=== PATIENT | male | born 1965 | race Caucasian/White ===

== ENCOUNTER 2017-12-01 18:52 | Inpatient (IN) | payer MEDICAID ==
--- NOTE | 2017-12-01 19:54 | C.PDOC ---
History Of Present Illness 52 year old male, hx of asthma, presents to the ED requesting substance detoxification from heroin. Patient reports last use of heroin was at 1600 today. He denies any SI/HI or hallucinations. Patient has no physical complaints. Time Seen by Provider: 12/01/17 19:28 Chief Complaint (Nursing): Substance Abuse History Per: Patient History/Exam Limitations: no limitations Onset/Duration Of Symptoms: Days Current Symptoms Are (Timing): Still Present Suicide/Self Injury Attempted (Context): None Modifying Factor(s): Other (heroin) Associated Symptoms: denies: Suicidal Thoughts Past Medical History Reviewed: Historical Data, Nursing Documentation, Vital Signs Vital Signs: Last Vital Signs Temp 98.2 F 12/01/17 19:05 Pulse 88 12/01/17 19:05 Resp 20 12/01/17 19:05 BP Pulse Ox 98 12/01/17 19:05 - Medical History PMH: Arthritis, Asthma Other Surgeries: hx of surgeries Family History: States: No Known Family Hx - Social History Hx Alcohol Use: Yes Hx Substance Use: Yes - Immunization History Hx Tetanus Toxoid Vaccination: No Hx Influenza Vaccination: No Hx Pneumococcal Vaccination: No Review Of Systems Except As Marked, All Systems Reviewed And Found Negative. Psych: Positive for: Other (Detox ). Negative for: Depression, Suicidal ideation Physical Exam - Physical Exam Appears: Non-toxic Skin: Warm, Dry Head: Normacephalic Eye(s): bilateral: Normal Inspection Nose: Normal Oral Mucosa: Moist Neck: Normal ROM Chest: Symmetrical Cardiovascular: Rhythm Regular Respiratory: No Rales, No Rhonchi, Wheezing (minimal scattered) Extremity: Normal ROM Neurological/Psych: Oriented x3, Normal Speech Gait: Steady ED Course And Treatment - Laboratory Results Result Diagrams: 12/01/17 19:54 12/01/17 19:54 O2 Sat by Pulse Oximetry: 98 (RA) Pulse Ox Interpretation: Normal - Radiology CXR: Viewed By Me, Read By Radiologist CXR Interpretation: Yes: No Acute Disease Medical Decision Making Medical Decision Making: Orders: - Labwork - UA 2037 Patient is medically clear for Detox. minimal scattered wheezing, "uses inhaler when needs it". state does not request inhaler at this time. no cardi opulm complaints. 2129 On reassessment, patient has diffused wheezing requiring nebulizer treatmen t and steroids. Patient is not longer clear for Detox. Dr. Swartz was paged. [id number] Swartz. Agrees with course of treatment. Disposition - Disposition Disposition: HOSPITALIZED Disposition Time: 22:54 Condition: STABLE - Clinical Impression Clinical Impression: Asthma, Drug abuse - Scribe Statement The provider has reviewed the documentation as recorded by the Scribe Little Khan All medical record entries made by the Scribe were at my direction and personally dictated by me. I have reviewed the chart and agree that the record accurately reflects my personal performance of the history, physical exam, medical decision making, and the department course for this patient. I have also personally directed, reviewed, and agree with the discharge instructions and disposition. Decision To Admit - Pt Status Changed To: Hospital Disposition Of: Inpatient - Admit Certification Admit to Inpatient:: After my assessment, the patient will require hospitalization for at least two midnights. This is because of the severity of symptoms shown, intensity of services needed, and/or the medical risk in this patient being treated as an outpatient. - InPatient: Physician Admission Certification: I certify that this patient requires 2 or m ore midnights of care for the following reason:: needs nebs steriods detox - . Bed Request Type: Regular Admitting Physician: Margarito Swartz Patient Diagnosis: Asthma, Drug abuse
[2017-12-01 20:01] LABS: BASO # 0.1 K/uL (0.0-0.2); BASO % 1.4 % (0.0-2.0); EOS # 0.2 K/uL (0.0-0.7); EOS % 3.5 % (0.0-4.0); HEMOGLOBIN 14.1 g/dL (12.0-18.0); LYMPH # 3.3 K/uL (1.0-4.3); LYMPH % 53.1 % (20.0-40.0); MEAN CELL VOLUME 94.1 fL (80.0-94.0); MEAN CORPUSCULAR HEMOGLOBIN 32.2 pg (27.0-31.0); MEAN CORPUSCULAR HGB CONC 34.2 g/dL (33.0-37.0); MEAN PLATELET VOLUME 7.5 fL (7.2-11.7); MONO # 0.4 K/uL (0.0-0.8); MONO % 5.8 % (0.0-10.0); NEUT # 2.2 K/uL (1.8-7.0); NEUT % 36.2 % (50.0-75.0); NRBC % 0.1 % (0.0-2.0); RBC 4.38 Mil/uL (4.40-5.90); RED CELL DISTRIBUTION WIDTH 13.8 % (11.5-14.5); WHITE BLOOD COUNT 6.2 K/uL (4.8-10.8)
[2017-12-01 20:34] LABS: SQUAMOUS EPITHIAL < 1 /hpf (0-5); URINE BACTERIA RARE (<OCC); URINE BILIRUBIN NEGATIVE (NEGATIVE); URINE BLOOD NEGATIVE (NEGATIVE); URINE CLARITY Clear (Clear); URINE GLUCOSE (UA) NORMAL (Normal); URINE LEUKOCYTE ESTERASE NEG Leu/uL (Negative); URINE PROTEIN NEGATIVE (NEGATIVE)
[2017-12-01 20:37] LABS: ALB/GLOB RATIO 1.6 (1.0-2.1); ALBUMIN 4.2 g/dL (3.5-5.0); ALT/SGPT 27 U/L (21-72); AST/SGOT 26 U/L (17-59); BLOOD UREA NITROGEN 11 mg/dL (9-20); CALCIUM 9.6 mg/dl (8.6-10.4); GFR NON-AFRICAN AMERICAN > 60
[2017-12-01 20:37] LABS: URINE COLOR YELLOW (YELLOW)
[2017-12-01 20:40] LABS: BARBITURATES, UR NEGATIVE (NEGATIVE)
[2017-12-01 20:45] LABS: BENZODIAZEPINES, UR POSITIVE (NEGATIVE); OPIATES, UR POSITIVE (NEGATIVE); PHENCYCLIDINE, UR POSITIVE (NEGATIVE)
[2017-12-01] MEDS ORDERED: Albuterol-Ipratrop 3 mg / 0.5 (3 ml) UD INH STA ×3 (21:23)
[2017-12-01] MEDS ORDERED: MethylPREDNISolone 40 mg Vial IVP STA (21:23)
[2017-12-02 00:31] VITALS: RESP 20
[2017-12-02] MEDS: MethylPREDNISolone 40 mg Vial IVP SCH ×4 (00:58→20:57)
[2017-12-02] MEDS: Albuterol-Ipratrop 3 mg / 0.5 (3 ml) UD INH SCH ×6 (07:51→23:57)
--- NOTE | 2017-12-02 08:22 | RAD ---
Date of service: 12/01/2017 HISTORY: asthma COMPARISON: 11/22/2014 TECHNIQUE: Chest PA and lateral FINDINGS: LUNGS: No consolidation. The hyperlucency over each apex and left lung base below the left breast soft tissues in this male patient appear similar. Technical factors versus bullous/bleb changes in these locations are compatible with this. PLEURA: No significant pleural effusion identified. No pneumothorax apparent. CARDIOVASCULAR: Normal. OSSEOUS STRUCTURES: Thoracic spondylosis. Some probable minimal deformity of a left inferolateral rib-previously referenced in 2015-not an acute finding. VISUALIZED UPPER ABDOMEN: Normal. OTHER FINDINGS: None. IMPRESSION: No active disease. Other findings as above.
--- NOTE | 2017-12-02 10:07 | CP.PCM.PN ---
Subjective - Date & Time of Evaluation Date of Evaluation: 12/02/17 Time of Evaluation: 07:00 - Subjective Subjective: PGY2- Progress Note for Dr. Swartz Patient is a 52 year old male with PMHx of asthma who presents for asthma exacerbation and detox from heroin. Patient has shortness of breath daily and wakes up nightly with cough and shortness of breath. Patient uses rescue inhaler at least once a day. Patient has been using heroin since age 35 off and on. Patient has been incarcerated many times during which he was not using. For the past 5 years however patient has been using 15 bags of heroin daily with no periods of abstinence. Patient only snorts heroin and denies having ever injected it. Patient says he used to use other drugs like PCP, but for the past 5 years has only used heroin. Patient used 11 bags of heroin before coming into the ER 12/01. Today patient is starting to feel withdrawal symptoms including abdominal pain, anxiety, and shakiness. Patient denies any nausea, vomiting, or diarrhea, but says he feels like he will start having symptoms soon. PMD: Dr. Swartz Allergies: NKDA PMHx: Asthma (diagnosed about 7 months ago) Surghx: Left eye cyst removal years ago, right finger surgery 10 years ago Meds: Albuterol inhaler Social: smokes 4 cigs/ day, Heroin since 35 off and on, past 5 years consistently 15 bags per day, no alcohol, prior PCP use lives with girlfriend, unemployed Objective - Vital Signs/Intake and Output Vital Signs (last 24 hours): Temp Pulse Resp BP Pulse Ox 97.7 F 82 20 102/62 96 12/02/17 07:54 12/02/17 07:54 12/02/17 07:54 12/02/17 07:54 12/02/17 07:54 Intake and Output: 12/02/17 12/02/17 06:59 18:59 Intake Total 360 Balance 360 - Medications Medications: Current Medications Albuterol/Ipratropium (Duoneb 3 Mg/0.5 Mg (3 Ml) Ud) 3 ml INH RQ4 MARTINE Last Admin: 12/02/17 07:51 Dose: 3 ml Enoxaparin Sodium (Lovenox) 40 mg SC DAILY MARTINE Lorazepam (Ativan) 1 mg PO Q6H PRN PRN Reason: Agitation Last Admin: 12/02/17 06:07 Dose: 1 mg Methylprednisolone (Solu-Medrol) 40 mg IVP Q6H MARTINE Last Admin: 12/02/17 06:07 Dose: 40 mg Pneumococcal Polyvalent Vaccine (Pneumovax 23 Vaccine) 0.5 ml IM .ONCE ONE Stop: 12/04/17 10:01 - Labs Labs: 12/01/17 19:54 12/01/17 19:54 - Constitutional Appears: Non-toxic, No Acute Distress - Head Exam Head Exam: ATRAUMATIC, NORMAL INSPECTION, NORMOCEPHALIC - Eye Exam Eye Exam: EOMI, Normal appearance - ENT Exam ENT Exam: Mucous Membranes Moist - Respiratory Exam Respiratory Exam: Clear to Ausculation Bilateral, Wheezes (b/l diffuse wheezing ), NORMAL BREATHING PATTERN - Cardiovascular Exam Cardiovascular Exam: REGULAR RHYTHM, RRR, +S1, +S2. absent: Murmur - GI/Abdominal Exam GI & Abdominal Exam: Soft, Hyperactive Bowel Sounds. absent: Tenderness - Extremities Exam Extremities Exam: Normal Inspection. absent: Pedal Edema, Tenderness - Back Exam Back Exam: NORMAL INSPECTION - Neurological Exam Neurological Exam: Alert, Awake, Oriented x3 - Psychiatric Exam Psychiatric exam: Normal Affect, Normal Mood - Skin Skin Exam: Intact, Normal Color, Warm Assessment and Plan - Assessment and Plan (Free Text) Assessment: Moderate Persistent Asthma continue Duonebs q4h martine Solu-medrol 40mg ivp q6h decreased to q8h Heroin Withdrawal Psych, Dr. Alexis consulted, help appreciated Ativan 1mg po q6h prn Methadone taper Prophylaxis Lovenox 40mg sc daily SCDs discussed with Dr. Swartz management as per Dr. Swartz
[2017-12-02] MEDS: Enoxaparin 40 mg Syringe SC SCH (10:17)
--- NOTE | 2017-12-02 11:29 | PCM.PSYCH ---
Addendum entered and electronically signed by Sujatha Nevarez MD 12/03/17 00:06: Pt seen and evacuated with the resident, agreed with the findings. Original Note: Initial Psychiatric Evaluation - Initial Psychiatric Evaluation Type of Admission: Voluntary Legal Status: Capacity Chief Complaint (in patient's own words): "I need detox" History of Present Illness and Precipitating Events: Patient is a 52 year old male with PMHx of asthma who presents for asthma exacerbation and detox from heroin. Consulted to aid in heroin detox. Patient chart reviewed, spoke with patient, and medical team. Admits to snorting 15 bags of heroin a day for at least the last 4 years. Was hospitalized for detox for 6 months at [facility] 7 years ago and only maintained sobriety for less than 1 year. Did not follow up anywhere for outpatient treatment, including NA meetings. Admits to 5 cig/day, past anabella dust use although testing positive for PCP on UDS. Denies current EtOH. He came to the hospital for detox as he is sick of how much it costs, and the physical toll it takes on his body. Almost immediately upon waking, he experiences headache and sweating, and about 2 hours later without using, he starts having diarrhea. Denies any SI/HI, hallucinations of any kind while sober. PMH includes asthma, OA, glaucoma. Denies any regular medications, carries Ventolin inhaler. Last heroin use immediately prior to admission. Current Medications: Active Medications Generic Name Dose Route Start Last Admin Trade Name Freq PRN Reason Stop Dose Admin Albuterol/Ipratropium 3 ml 12/02/17 04:00 12/02/17 07:51 Duoneb 3 Mg/0.5 Mg (3 Ml) Ud INH 3 ml RQ4 MICHAEL Administration Enoxaparin Sodium 40 mg 12/02/17 10:00 12/02/17 10:17 Lovenox SC Not Given DAILY MICHAEL Lorazepam 1 mg 12/01/17 22:06 12/02/17 06:07 Ativan PO 1 mg Q6H PRN Administration Agitation Methylprednisolone 40 mg 12/02/17 01:00 12/02/17 06:07 Solu-Medrol IVP 40 mg Q6H MICHAEL Administration Pneumococcal Polyvalent Vaccine 0.5 ml 12/04/17 10:00 Pneumovax 23 Vaccine IM 12/04/17 10:01 .ONCE ONE Past Psychiatric History - Past Psychiatric History Previous Treatment History: Inpatient Pertinent Medical Hx (Current Medical&Sleep Prob, Allergies): Allergies Allergy/AdvReac Type Severity Reaction Status Date / Time No Known Allergies Allergy Unverified 12/01/17 19:12 Albuterol Sulfate [Ventolin Hfa] 0.09 mg IH Q4 PRN #1 inh 11/22/14 Review of Systems - Neurological Neurological: Behavioral Changes, Confusion, Dizziness, Numbness, Headaches, Memory Loss - Psychiatric Psychiatric: Abnormal Sleep Pattern, Anxiety, Confusion. absent: Anhedonia, Auditory Hallucinations, Depression, Hallucinations, Homicidal Ideation, Suicidal Ideation, Visual Hallucinations, Tactile Hallucinations Mental Status Examination - Personal Presentation Personal Presentation: Looks older than stated age - Affect Affect: Constricted - Motor Activity Motor Activity: Calm - Reliability in Providing Information Reliability in Providing Information: Good - Speech Speech: Organized - Mood Mood: Anxious - Formal Thought Process Formal Thought Process: No Impairment - Cognitive Functions Orientation: Person, Place, Situation, Time Sensorium: Drowsy Attention/Concentration: Attentive Abstract Thinking: [place] Estimate of Intelligence: Average Judgement: Intact, as evidence by: Insight regarding need for hospitalization Memory: Recent intact, as evidence by: Ability to recall events of the day - Risk Risk: Withdrawal - Strength & Assets Inventory Strength & Assets Inventory: Cooperative DSM 5 DX - DSM 5 DSM 5 Diagnosis: opioid use severe, withdrawal PCP use Tobacco use - Recommended/Plan of Treatment Treatment Recommendations and Plan of Treatment: methadone taper [facility] and [facility] for abstinence as needed medications attend group and meeting if transferred to psych unit support and psychoeducation refer to inpatient rehab or IOP on d/c nicotine patch if needed 26 min - Smoking Cessation Smoking Cessation Initiated: No
[2017-12-02] MEDS ORDERED: MethylPREDNISolone 40 mg Vial IVP SCH (13:00)
[2017-12-02 14:10] LABS: BASO % 0.2 % (0.0-2.0); HEMOGLOBIN 13.7 g/dL (12.0-18.0); LYMPH # 0.8 K/uL (1.0-4.3); LYMPH % 8.6 % (20.0-40.0); MEAN CELL VOLUME 93.2 fL (80.0-94.0); MEAN CORPUSCULAR HEMOGLOBIN 31.8 pg (27.0-31.0); MEAN CORPUSCULAR HGB CONC 34.2 g/dL (33.0-37.0); MEAN PLATELET VOLUME 7.7 fL (7.2-11.7); MONO # 0.2 K/uL (0.0-0.8); MONO % 1.6 % (0.0-10.0); NEUT # 8.4 K/uL (1.8-7.0); NEUT % 89.6 % (50.0-75.0); PLATELET COUNT 363 K/uL (130-400); RBC 4.29 Mil/uL (4.40-5.90); RED CELL DISTRIBUTION WIDTH 13.4 % (11.5-14.5); WHITE BLOOD COUNT 9.4 K/uL (4.8-10.8)
[2017-12-02 14:32] LABS: ALB/GLOB RATIO 1.6 (1.0-2.1); ALBUMIN 3.8 g/dL (3.5-5.0); ALT/SGPT 15 U/L (21-72); AST/SGOT 19 U/L (17-59); BLOOD UREA NITROGEN 11 mg/dL (9-20); CALCIUM 9.6 mg/dl (8.6-10.4); GFR NON-AFRICAN AMERICAN > 60
[2017-12-02 14:39] LABS: LYMPHOCYTE 5 % (20-40); NEUTROPHIL 95 % (50-75); TOTAL CELLS COUNTED 100
[2017-12-02 14:40] LABS: PLATELET ESTIMATE NORMAL (NORMAL)
[2017-12-03] MEDS ORDERED: Aluminum Hydroxide/Magnesium Hydroxide Susp (30 mL) PO PRN (00:03)
[2017-12-03] MEDS: Albuterol-Ipratrop 3 mg / 0.5 (3 ml) UD INH SCH ×6 (03:26→23:59)
[2017-12-03] MEDS: MethylPREDNISolone 40 mg Vial IVP SCH ×2 (03:42→12:34)
[2017-12-03 07:31] LABS: BASO % 0.1 % (0.0-2.0); HEMOGLOBIN 14.3 g/dL (12.0-18.0); LYMPH # 0.5 K/uL (1.0-4.3); LYMPH % 3.6 % (20.0-40.0); MEAN CELL VOLUME 93.7 fL (80.0-94.0); MEAN CORPUSCULAR HEMOGLOBIN 31.8 pg (27.0-31.0); MEAN CORPUSCULAR HGB CONC 33.9 g/dL (33.0-37.0); MONO # 0.2 K/uL (0.0-0.8); MONO % 1.2 % (0.0-10.0); NEUT # 13.3 K/uL (1.8-7.0); NEUT % 95.1 % (50.0-75.0); PLATELET COUNT 406 K/uL (130-400); RBC 4.51 Mil/uL (4.40-5.90); RED CELL DISTRIBUTION WIDTH 13.7 % (11.5-14.5)
--- NOTE | 2017-12-03 07:52 | CP.PCM.PN ---
Subjective - Date & Time of Evaluation Date of Evaluation: 12/03/17 Time of Evaluation: 10:00 - Subjective Subjective: PGY 3 Med Note- Dr. Swartz's service Patient seen and examined in no apparent acute distress. Patient states that his breathing is improved. He states that he was wheezing quite a bit when he initially presented to the hospital. Patient states that he is currently detoxing from heroin use. Patient states that he only snorts; he denies ever injecting. Patient denies chest pain, headaches, nausea, vomiting at this time. Objective - Vital Signs/Intake and Output Vital Signs (last 24 hours): Temp Pulse Resp BP Pulse Ox 98.2 F 89 20 108/60 96 12/03/17 00:40 12/03/17 00:40 12/03/17 00:40 12/03/17 00:40 12/03/17 00:40 Intake and Output: 12/03/17 12/03/17 06:59 18:59 Intake Total 480 Balance 480 - Medications Medications: Current Medications Al Hydrox/Mg Hydrox/Simethicone (Maalox 30 Ml) 30 ml PO TID PRN PRN Reason: Indigestion / Heartburn Albuterol/Ipratropium (Duoneb 3 Mg/0.5 Mg (3 Ml) Ud) 3 ml INH RQ4 MARTINE Last Admin: 12/03/17 03:26 Dose: Not Given Enoxaparin Sodium (Lovenox) 40 mg SC DAILY MARTINE Last Admin: 12/02/17 10:17 Dose: Not Given Loperamide HCl (Imodium) 2 mg PO Q8 PRN PRN Reason: Diarrhea Lorazepam (Ativan) 1 mg PO Q6H PRN PRN Reason: Agitation Last Admin: 12/03/17 03:44 Dose: 1 mg Methadone HCl (Methadone) 0 mg PO DAILY MARTINE; Taper Stop: 12/06/17 09:59 Methylprednisolone (Solu-Medrol) 40 mg IVP Q8H MARTINE Last Admin: 12/03/17 03:42 Dose: 40 mg Ondansetron HCl (Zofran Tab) 4 mg PO Q8 PRN PRN Reason: Nausea/Vomiting Pneumococcal Polyvalent Vaccine (Pneumovax 23 Vaccine) 0.5 ml IM .ONCE ONE Stop: 12/04/17 10:01 Pseudoephedrine HCl (Sudafed Tab) 60 mg PO QID PRN PRN Reason: Nasal/Sinus Congestion - Labs Labs: 12/03/17 06:51 12/02/17 14:00 - Constitutional Appears: No Acute Distress - Head Exam Head Exam: ATRAUMATIC, NORMAL INSPECTION - Eye Exam Eye Exam: EOMI, Normal appearance - ENT Exam ENT Exam: Mucous Membranes Moist - Neck Exam Neck Exam: Full ROM - Respiratory Exam Respiratory Exam: Wheezes (scattered and intermittent). absent: Rales, Rhonchi - Cardiovascular Exam Cardiovascular Exam: +S1, +S2 - GI/Abdominal Exam GI & Abdominal Exam: Soft, Normal Bowel Sounds. absent: Tenderness - Extremities Exam Extremities Exam: Full ROM - Neurological Exam Neurological Exam: Alert, Awake, Oriented x3 - Psychiatric Exam Psychiatric exam: Normal Affect, Normal Mood - Skin Skin Exam: Dry, Normal Color, Warm Assessment and Plan - Assessment and Plan (Free Text) Assessment: Moderate Persistent Asthma Continue Duonebs q4h martine Switch Solu-medrol 40mg IV to Prednisone 40 mg PO Q8H Counseled on asthma management Monitor Heroin Withdrawal Psych, Dr. Alexis consulted, help appreciated Ativan 1mg po q6h prn Methadone taper scheduled to stop 12/06/2017 Patient is refusing in patient detox at this time. Prophylaxis Lovenox 40mg sc daily SCDs GI prophylaxis not currently indicated Discussed with attending. All planning and management as per Dr. Swartz
[2017-12-03 07:53] LABS: ALB/GLOB RATIO 1.6 (1.0-2.1); ALBUMIN 4.1 g/dL (3.5-5.0); ALT/SGPT 25 U/L (21-72); AST/SGOT 25 U/L (17-59); BLOOD UREA NITROGEN 14 mg/dL (9-20); CALCIUM 9.9 mg/dl (8.6-10.4); GFR NON-AFRICAN AMERICAN > 60
[2017-12-03 08:19] VITALS: O2SAT 95
[2017-12-03 08:29] LABS: LYMPHOCYTE 5 % (20-40); MONOCYTE 1 % (0-10); NEUTROPHIL 94 % (50-75); PLATELET ESTIMATE NORMAL (NORMAL); TOTAL CELLS COUNTED 100
[2017-12-03] MEDS: Enoxaparin 40 mg Syringe SC SCH (10:07)
[2017-12-04 01:15] VITALS: BP 108/71; PULSE 77; TEMP 98.7
[2017-12-04] MEDS: Albuterol-Ipratrop 3 mg / 0.5 (3 ml) UD INH SCH (03:27)
[2017-12-04] MEDS ORDERED: Pneumococcal 23-Valent Vaccine IM ONE (10:00)
== END 2017-12-04 04:08 | disposition left against medical advice (07) | DRG 96 ==
LOC: C.ER 18:52 → C.7D 21:00 → UNDOADMIN 21:00 → C.9E 22:08 → C.3T 22:46
PROVIDERS: ADMIT Internal Medicine Pulmonary Disease; ATTEND Internal Medicine Pulmonary Disease
PROC: HZ81ZZZ Medication Management for Substance Abuse Treatment, Methadone Maintenance (ICD-10-PCS; principal; 2017-12-01)
DX: J45.41 Moderate persistent asthma with (acute) exacerbation (principal); F11.23 Opioid dependence with withdrawal; F17.210 Nicotine dependence, cigarettes, uncomplicated; R06.2 Wheezing

== ENCOUNTER 2018-01-16 11:57 | Emergency (ER) | payer MEDICAID ==
[2018-01-16 12:14] VITALS: RESP 20
[2018-01-16] MEDS: Albuterol-Ipratrop 3 mg / 0.5 (3 ml) UD IH SCH ×3 (12:50→13:31)
--- NOTE | 2018-01-16 12:53 | C.PDOC ---
History Of Present Illness 52 years old male with PMHx of Asthma states he is sent to ED by [facility] "because my lungs are not sounding good." Patient states he has been wheezing and using inhalers for 3-4 days which prompted his visit to [facility] yesterday. Patient reports it was raining yesterday and on the way home he slipped and fell and since then has been experiencing right lateral anterior rib pain. Patient states symptoms worsen with movement, cough, and breathing. Denies fever, chills, SOB, chest pain, vomiting, head injury from fall, or any other complaints. Patient also states [facility] yesterday started him on levaquin, prednisone, and phenergan cough syrup. Time Seen by Provider: 01/16/18 12:24 Chief Complaint (Nursing): Rib Injury History Per: Patient History/Exam Limitations: no limitations Onset/Duration Of Symptoms: Days (4), Persistent Current Symptoms Are (Timing): Still Present Recent travel outside of the [place]: No Past Medical History Reviewed: Historical Data, Nursing Documentation, Vital Signs Vital Signs: Last Vital Signs Temp 98.8 F 01/16/18 12:09 Pulse 77 01/16/18 12:09 Resp 20 01/16/18 12:09 BP 101/66 01/16/18 12:09 Pulse Ox 95 01/16/18 12:09 - Medical History PMH: Arthritis, Asthma - [facility] Procedures MEDS MGMT FOR SUBSTANCE ABUSE TREATMENT, METHADONE MAINT (12/01/17) Family History: States: No Known Family Hx - Social History Hx Alcohol Use: Yes (denies) Hx Substance Use: Yes (heroin,anabella dust) - Immunization History Hx Tetanus Toxoid Vaccination: No Hx Influenza Vaccination: No Hx Pneumococcal Vaccination: No Review Of Systems Cardiovascular: Negative for: Chest Pain Respiratory: Positive for: Wheezing. Negative for: Shortness of Breath Gastrointestinal: Negative for: Nausea, Vomiting Musculoskeletal: Positive for: Other (Right lateral anterior rib pain ). Negative for: Back Pain Skin: Negative for: Rash Neurological: Negative for: Weakness, Numbness, Other (Head injury ) Physical Exam - Physical Exam Appears: Non-toxic, No Acute Distress Skin: Warm, Dry, No Rash Head: Atraumatic, Normacephalic Eye(s): bilateral: Normal Inspection, PERRL, EOMI Oral Mucosa: Moist ([place] ) Neck: Normal ROM, Supple Chest: Symmetrical, Other (Small bruise to right lower anterior chest wall with tenderness and pain. No bony step offs or crepitus. ) Cardiovascular: Rhythm Regular, No Murmur Respiratory: No Decreased Breath Sounds, No Rales, Rhonchi (Scattered ), Wheezing (Diffuse expiratory ), Other (Normal respiratory effort. Equal breath sounds. ) Gastrointestinal/Abdominal: Soft, No Tenderness, No Distention Back: Normal Inspection, No CVA Tenderness Extremity: Normal ROM Extremity: Bilateral: Atraumatic, Normal Color And Temperature, Normal ROM Pulses: Left Radial: Normal, Right Radial: Normal Neurological/Psych: Oriented x3, Normal Speech Gait: Steady ED Course And Treatment O2 Sat by Pulse Oximetry: 95 (RA) Pulse Ox Interpretation: Normal - Other Rad Ribs w/ Chest X-Ray X-Ray: Viewed By Me, Read By Radiologist Interpretation: Date of service: The a all 866 the from the weeks of send off of the right. 01/16/2018. PROCEDURE: Radiographs of the Chest and Right Ribs. HISTORY: fall/R rib pain. COMPARISON: Comparison made with prior chest radiograph dated 12/01/2017. TECHNIQUE: Frontal radiograph of the chest and multiple oblique radiographs of the right ribs were obtained. FINDINGS: RIGHT RIBS: There is a minimally displaced fracture of the right 8th or 9th rib.. Questionable nondisplaced fracture right. LUNGS: Lung soriano clear. PLEURA: No pneumothorax or pleural fluid. CARDIOVASCULAR: Heart is mildly enlarged. No pulmonary vascular congestion. No appreciable aortic atherosclerotic calcification present. OTHER FINDINGS: Mild multilevel degenerative spondylosis of the thoracic spine. IMPRESSION: There is a minimally displaced fracture of the right 8th or 9th rib questionable nondisplaced fracture right 7th rib 7th rib. No evidence of pneumothorax. No acute infiltrates.. Note this report was placed in PA review folder for follow up. Medical Decision Making Medical Decision Making: Plan: * Albuterol nebulizer treatment and peak flow. * Ribs and CXR * Re-Asses 14:50: * Patient states he is feeling better after breathing treatment Disposition Counseled Patient/Family Regarding: Studies Performed, Diagnosis, Need For Followup, Smoking Cessation - Disposition Referrals: Margarito Swartz MD [Staff Provider] - Disposition: HOME/ ROUTINE Disposition Time: 16:11 Condition: STABLE Additional Instructions: Additional Aftercare Instructions The emergency medical care you received today was directed at your acute symptoms. If you develop any new or worsening symptoms please contact your PCP/Clinic or return to the Emergency Department. Despite a negative work up you still may have a significant medical or surgical problem. Contact your doctor or the referral doctor today for a follow up appointment. Bring any paperwork you were given at discharge with you along with any medications. Our treatment cannot replace on going medical care by your primary care provider (PCP). If you were given prescriptions fill and take as directed. It may take several days for your symptoms to resolve. Follow-Up Care: Please follow up with your doctor or call one of the physicians/clinics you have been referred to listed on the Patient Visit Information form that is included in your discharge packet. We may need to contact you with final test results please confirm your phone number is correct. Your questions, comments, suggestions and/or concerns are valuable to us. Please feel free to contact our patient hotline at . Thanks for allowing the [facility] team to be part of your care today. Please follow up with your Primary Care Provider in the next 2-3 days. Prescriptions: Ketorolac Tromethamine [Toradol] 10 mg PO Q6 PRN #15 tab PRN Reason: Pain, Moderate (4-7) Instructions: Upper Respiratory Infection (ED), Rib Fracture (DC), How to Use an Incentive Spirometer Forms: [employer] (Iranian), General Discharge Instructions - POA Present On Arrival: None - Clinical Impression Clinical Impression: Upper respiratory infection, Rib fractures - Scribe Statement The provider has reviewed the documentation as recorded by the Mily Torre All medical record entries made by the Arlynibjose were at my direction and pe rsonally dictated by me. I have reviewed the chart and agree that the record accurately reflects my personal performance of the history, physical exam, medical decision making, and the department course for this patient. I have also personally directed, reviewed, and agree with the discharge instructions and disposition.
[2018-01-16] MEDS ORDERED: Albuterol-Ipratrop 3 mg / 0.5 (3 ml) UD ONE (13:12)
[2018-01-16 15:19] VITALS: BP 106/61; PULSE 83; TEMP 98.6
--- NOTE | 2018-01-16 15:41 | RAD ---
Date of service: The a all 866 the from the honey weeks of send off of the right 01/16/2018 PROCEDURE: Radiographs of the Chest and Right Ribs. HISTORY: fall/R rib pain COMPARISON: Comparison made with prior chest radiograph dated 12/01/2017 TECHNIQUE: Frontal radiograph of the chest and multiple oblique radiographs of the right ribs were obtained. FINDINGS: RIGHT RIBS: There is a minimally displaced fracture of the right 8th or 9th rib.. Questionable nondisplaced fracture right LUNGS: Lung soriano clear. PLEURA: No pneumothorax or pleural fluid. CARDIOVASCULAR: Heart is mildly enlarged. No pulmonary vascular congestion. No appreciable aortic atherosclerotic calcification present OTHER FINDINGS: Mild multilevel degenerative spondylosis of the thoracic spine IMPRESSION: There is a minimally displaced fracture of the right 8th or 9th rib questionable nondisplaced fracture right 7th rib 7th rib. No evidence of pneumothorax. No acute infiltrates.. Note this report was placed in PA review folder for follow up.
[2018-01-16 15:42] VITALS: O2SAT 95
== END 2018-01-16 16:30 | disposition home or self-care (01) ==
LOC: C.ER 11:57
DX: J06.9 Acute upper respiratory infection, unspecified (principal); S22.31XA Fracture of one rib, right side, initial encounter for closed fracture; W01.0XXA Fall on same level from slipping, tripping and stumbling without subsequent striking against object, initial encounter
CPT/HCPCS: 71101; 94640; 96372; 99285; J1885

== ENCOUNTER 2018-03-09 10:11 | Inpatient (IN) | payer MEDICAID ==
--- NOTE | 2018-03-09 11:50 | C.PDOC ---
History Of Present Illness 52 year old male, whose past medical history includes asthma, glaucoma, and bilateral shoulder arthritis, presents to the ED requesting heroin and Xanax detox. Patient states his last use was this morning; he snorted one bag of heroi n. He is currently complaining of slight nausea, and denies fever, chills, headache, chest pain, shortness of breath, suicidal/homicidal ideation. Time Seen by Provider: 03/09/18 10:35 Chief Complaint (Nursing): Substance Abuse History Per: Patient History/Exam Limitations: no limitations Onset/Duration Of Symptoms: Hrs Current Symptoms Are (Timing): Still Present Modifying Factor(s): Other (heroin, Xanax) Associated Symptoms: denies: Suicidal Thoughts, Suicidal Plan Involuntary Hold By: None Recent travel outside of the [place]: No Additional History Per: Patient Past Medical History Reviewed: Historical Data, Nursing Documentation, Vital Signs Vital Signs: Last Vital Signs Temp 97.9 F 03/09/18 10:21 Pulse 84 03/09/18 10:21 Resp 16 03/09/18 10:21 BP 138/84 03/09/18 10:21 Pulse Ox 98 03/09/18 10:21 - Medical History PMH: Arthritis, Asthma Denies: Diabetes, Hepatitis, HIV, HTN, Chronic Kidney Disease, Seizures, Sexually Transmitted Disease Surgical History: No Surg Hx - [facility] FOR SUBSTANCE ABUSE TREATMENT, METHADONE MAINT (12/01/17) Family History: States: Unknown Family Hx - Social History Hx Alcohol Use: Yes (denies) Hx Substance Use: Yes (heroin,anabella dust) - Immunization History Hx Tetanus Toxoid Vaccination: No Hx Influenza Vaccination: No Hx Pneumococcal Vaccination: No Review Of Systems Constitutional: Negative for: Fever, Chills Cardiovascular: Negative for: Chest Pain Respiratory: Negative for: Shortness of Breath Gastrointestinal: Positive for: Nausea Psych: Positive for: Other (heroin and Xanax detox). Negative for: Suicidal ideation Physical Exam - Physical Exam Appears: Non-toxic, No Acute Distress, Unkempt, Other (thin, frail ) Skin: Normal Color, Warm, Dry Head: Atraumatic, Normacephalic Eye(s): bilateral: Normal Inspection Oral Mucosa: Moist Neck: Supple Chest: Symmetrical, No Deformity Cardiovascular: Rhythm Regular Respiratory: No Accessory Muscle Use Extremity: Normal ROM Neurological/Psych: Normal Speech, Normal Cognition ED Course And Treatment - Laboratory Results Result Diagrams: 03/09/18 12:07 O2 Sat by Pulse Oximetry: 98 (on RA) Pulse Ox Interpretation: Normal Medical Decision Making Medical Decision Making: Progress: Bloodwork and urinalysis ordered and reviewed. Disposition Counseled Patient/Family Regarding: Diagnosis - Disposition Disposition: HOSPITALIZED Disposition Time: 14:02 Condition: STABLE Forms: [facility] (Icelandic) - POA Present On Arrival: None - Clinical Impression Clinical Impression: Drug dependence - Scribe Statement The provider has reviewed the documentation as recorded by the Scribe (Yamileth Del Valle) Provider Attestation: All medical record entries made by the Scribe were at my direction and personally dictated by me. I have reviewed the chart and agree that the record accurately reflects my personal performance of the history, physical exam, medical decision making, and the department course for this patient. I have also personally directed, reviewed, and agree with the discharge instructions and disposition. Decision To Admit - Pt Status Changed To: Hospital Disposition Of: Inpatient - Admit Certification Admit to Inpatient:: After my assessment, the patient will require hospitalization for at least two midnights. This is because of the severity of symptoms shown, intensity of services needed, and/or the medical risk in this patient being treated as an outpatient. - InPatient: Physician Admission Certification: I certify that this patient requires 2 or more midnights of care for the following reason:: nrrds inpatient detox - . Bed Request Type: Detox Admitting Physician: Jarett Townsend Patient Diagnosis: Drug dependence
[2018-03-09 11:52] LABS: BASO % 0.7 % (0.0-2.0); EOS # 0.1 K/uL (0.0-0.7); EOS % 2.1 % (0.0-4.0); HEMOGLOBIN 14.3 g/dL (12.0-18.0); LYMPH # 1.2 K/uL (1.0-4.3); MEAN CORPUSCULAR HEMOGLOBIN 32.4 pg (27.0-31.0); MEAN CORPUSCULAR HGB CONC 33.5 g/dL (33.0-37.0); MONO # 0.3 K/uL (0.0-0.8); MONO % 6.8 % (0.0-10.0); NEUT # 2.6 K/uL (1.8-7.0); NEUT % 62.4 % (50.0-75.0); NRBC % 0.1 % (0.0-2.0); RBC 4.4 Mil/uL (4.40-5.90); RED CELL DISTRIBUTION WIDTH 14.7 % (11.5-14.5)
[2018-03-09 11:57] LABS: URINE BILIRUBIN NEGATIVE (NEGATIVE); URINE BLOOD 1+ (NEGATIVE); URINE CLARITY Clear (Clear); URINE COLOR Yellow (YELLOW); URINE GLUCOSE (UA) NORMAL (Normal); URINE LEUKOCYTE ESTERASE NEG Leu/uL (Negative); URINE PROTEIN NEGATIVE (NEGATIVE); URINE UROBILINOGEN NORMAL mg/dL (0.2-1.0)
[2018-03-09 12:11] LABS: MEAN CELL VOLUME 96.9 fL (80.0-94.0); WHITE BLOOD COUNT 4.1 K/uL (4.8-10.8)
[2018-03-09 13:49] LABS: BENZODIAZEPINES, UR POSITIVE (NEGATIVE); OPIATES, UR POSITIVE (NEGATIVE)
[2018-03-09 13:50] LABS: BARBITURATES, UR NEGATIVE (NEGATIVE); PHENCYCLIDINE, UR NEGATIVE (NEGATIVE)
[2018-03-09 14:12] LABS: BLOOD UREA NITROGEN 12 mg/dL (9-20)
[2018-03-09 14:13] LABS: ALB/GLOB RATIO 1.7 (1.0-2.1); ALBUMIN 4.1 g/dL (3.5-5.0); AST/SGOT 32 U/L (17-59); CALCIUM 9.1 mg/dl (8.6-10.4); GFR NON-AFRICAN AMERICAN > 60
[2018-03-09 14:14] LABS: ALT/SGPT 17 U/L (21-72)
[2018-03-09] MEDS ORDERED: Aluminum Hydroxide/Magnesium Hydroxide Susp (30 mL) PO PRN (16:16)
--- NOTE | 2018-03-09 16:36 | PCM.BM ---
<CarlaBecky - Last Filed: 03/09/18 20:35> Treatment Plan Problems - Problems identified on initial assessmt Denial Date Initiated: 03/09/18 Time Initiated: 16:35 Assessment reference: NA Status: Active Defensive Coping Date Initiated: 03/09/18 Assessment reference: NA Status: Active Low motivation to change Date Initiated: 03/09/18 Time Initiated: 20:36 Assessment reference: NA Status: Active Treatment assets and liabiliti Patient Assests: cooperative, ADL independent, negotiates basic needs, cognitively intact Patient Liabilities: live alone, substance abuse (opiates,benzo,cocaine), medical problems (asthma,glaucoma,arthritis), other (homelessness) - Milieu Protocol Maintain good personal hygiene: daily Encourage regular showers, daily Remind patient to perform daily oral care, daily Assist patient to perform ADL's Conduct patient checks and document Observation sheet: Q15 minutes Maintain personal safety: every shift Educate patient to report safety concerns to staff, every shift Monitor environment for contraband/sharps Medication safety: Monitor for expected outcome, potential side effects: every shift, Assess barriers to learning: every shift, Assess readiness for medication education: every shift <Jarett Townsend - Last Filed: 03/10/18 15:56> Treatment Plan Problems - Problems identified on initial assessmt Denial Date Initiated: 03/09/18 Time Initiated: 16:35 Assessment reference: NA Status: Active Defensive Coping Date Initiated: 03/09/18 Assessment reference: NA Status: Active Low motivation to change Date Initiated: 03/09/18 Time Initiated: 20:36 Assessment reference: NA Status: Active Ineffective Health Maintenance Date Initiated: 03/09/18 Time Initiated: 16:35 Assessment reference: NA Status: Active - Diagnosis (1) Opioid use disorder, severe, dependence Status: Acute Interventions: 03/10/18 15:57 * Assess 7x/week regarding severity of withdrawal * Educate regarding risks, benefits, side effects and alternatives of medications * Use Motivational Interviewing for abstinence * Use CBT for relapse prevention * Medication management for withdrawal symptoms * Encourage medication assisted treatment (2) Cocaine use disorder, severe, dependence Status: Acute Interventions: 03/10/18 15:57 * Assess 7x/week regarding severity of withdrawal * Educate regarding risks, benefits, side effects and alternatives of medications * Use Motivational Interviewing for abstinence * Use CBT for relapse prevention * Medication management for withdrawal symptoms * Encourage medication assisted treatment (3) Sedative, hypnotic or anxiolytic use disorder, mild, abuse Status: Acute Interventions: 03/10/18 15:57 * Assess 7x/week regarding severity of withdrawal * Educate regarding risks, benefits, side effects and alternatives of medications * Use Motivational Interviewing for abstinence * Use CBT for relapse prevention * Medication management for withdrawal symptoms * Encourage medication assisted treatment <Sugey Milner - Last Filed: 03/11/18 14:53> Family Contact Family involvement: Famliy/SO not involved - Goals for Treatment Patient goals for treatment: Complete detox and transition to 12-step meetings. Discharge/Continuing Care - Education Needs Education Needs: Patient Medication, Patient Diagnosis/Disease Process, Patient Coping Skills, Patient Anger Management skills, Patient Placement options, Patient Community resources - Discharge Discharge Criteria: No longer exhibiting s/s of withdrawal, Reduction of target symptoms Discharge to:: Home - Treatment Team Participation Patient/Family/SO Statement: 03/11/18 14:53 "I wanna go to meetings from here. That's all I need." Discussed with Family/SO: No Was Patient/Family/SO present at Treatment Team Meeting: Yes
--- NOTE | 2018-03-10 16:05 | PCM.PSYCH ---
Initial Psychiatric Evaluation - Initial Psychiatric Evaluation Type of Admission: Voluntary Legal Status: Capacity Chief Complaint (in patient's own words): I need help for my heroin, cocaine and Xanax use. 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 Opioid: Started using heroin at 13 years of age, increased gradually up to 1-2 bundles of heroin daily, sniffing. Last use was yesterday one bag. His longest period of abstinence was 15 years until 9 years ago when he relapsed again. Later patient was in methadone maintenance treatment program for 1-1/2 year until 3 months ago when he stopped going to the program and relapsed again. Patient has history of one detox and 2 rehabs in the past in [facility] and [facility]. Cocaine: Patient has history of cocaine use but was guarded about cocaine use. Urine drug screen was also positive for cocaine. Xanax: Started using Xanax 2 weeks ago, was using 1-2 sticks each of 2 mg, 3 times per week. Last used 2 days ago. Patient smokes 5-6 cigarettes daily but is refusing for nicotine patch. Patient has history of right leg surgery during his childhood. Patient has history of frequent requests in the past due to on corroborating, drug charges, shoplifting and [facility]. His last arrest was 10 years ago. Patient was born in [place] and has 12th grade of education. 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 Never and has no children. Lives with his fiance for last 15 years. His height is 5 feet 11 inches and weight is 130 pounds. Current Medications: Active Medications Generic Name Dose Route Start Last Admin Trade Name Freq PRN Reason Stop Dose Admin Al Hydrox/Mg Hydrox/Simethicone 30 ml 03/09/18 16:16 Maalox 30 Ml PO TID PRN Indigestion / Heartburn Chlordiazepoxide 25 mg 03/09/18 18:05 03/10/18 13:23 Librium PO 25 mg Q6 PRN Administration benzo withdrawal Clonidine HCl 0.1 mg 03/09/18 16:16 Catapres PO Q4 PRN COWS Score More or Equal to 5 Dicyclomine HCl 10 mg 03/09/18 16:17 Bentyl PO Q6 PRN Muscle spasm Gabapentin 400 mg 03/10/18 14:00 03/10/18 14:09 Neurontin PO 400 mg TID MICHAEL Administration Ibuprofen 600 mg 03/09/18 16:16 Motrin Tab PO Q6 PRN Pain, moderate (4-7) Loperamide HCl 2 mg 03/09/18 16:16 Imodium PO Q8 PRN Diarrhea Methadone HCl 15 mg 03/10/18 10:00 03/10/18 09:12 Methadone PO 03/13/18 09:59 15 mg Q24H MICHAEL Administration Taper Ondansetron HCl 4 mg 03/09/18 16:16 Zofran Tab PO Q8 PRN Nausea/Vomiting Trazodone HCl 50 mg 03/09/18 22:00 03/09/18 22:25 Desyrel PO 50 mg HS MICHAEL Administration Past Psychiatric History - Past Psychiatric History Previous Treatment History: Inpatient Prior Psychiatric Treatment: One previous detox and 2 previous rehabs. History of Abuse: None reported History of ETOH/Drug Use: See HPI History of Family Illness: None reported Pertinent Medical Hx (Current Medical&Sleep Prob, Allergies): Allergies Allergy/AdvReac Type Severity Reaction Status Date / Time No Known Allergies Allergy Verified 03/09/18 10:22 Albuterol Sulfate [Ventolin Hfa] 0.09 mg IH Q4 PRN #1 inh 11/22/14 Asthma Arthritis Diabetes mellitus Bilateral glaucoma Review of Systems - Psychiatric Psychiatric: As Per HPI, Anxiety Mental Status Examination - Personal Presentation Personal Presentation: Looks stated age - Affect Affect: Other (Appropriate) - Motor Activity Motor Activity: Calm - Reliability in Providing Information Reliability in Providing Information: Fair - Speech Speech: Organized - Mood Mood: Anxious - Formal Thought Process Formal Thought Process: No Impairment - Hallucinations/Delusions Hallucinations: Other (None reported) Delusions: Other - Obsessions/Compulsions Obsessions: None Compulsions: None - Cognitive Functions Orientation: Person, Place, Situation, Time Sensorium: Alert Attention/Concentration: Attentive Abstract Thinking: [place] Estimate of Intelligence: Average Judgement: Intact, as evidence by: Insight regarding need for hospitalization Memory: Recent intact, as evidence by: Ability to recall events of the day, Remote intact, as evidenced by: Ability to recall historical events - Risk Risk: Withdrawal, Diminished functioning - Strength & Assets Inventory Strength & Assets Inventory: Employment history, Cooperative - Limitations Limitations: Other (Lives with fianc) DSM 5 DX - DSM 5 DSM 5 Diagnosis: Opiate withdrawal Opiate use disorder severe Cocaine use disorder severe Angiolytic use disorder mild - Recommended/Plan of Treatment Treatment Recommendations and Plan of Treatment: Patient education. Supportive therapy. CBT for relapse prevention. [place] for abstinence. We'll start methadone for opiate withdrawal symptoms. Librium when necessary for angiolytic use disorder. Other when necessary medications. Patient wants to go to a program for Vivitral injection for follow-up care after discharge from the hospital. Projected ELOS: 4-5 days - Smoking Cessation Smoking Cessation Initiated: No Reason for not providing: Patient refused
[2018-03-11 10:55] VITALS: RESP 18
--- NOTE | 2018-03-11 15:48 | PCM.PYCHPN ---
Psychiatric Progress Note - Psychiatric Progress Note Patient seen today, length of contact: 15 minutes Patient Chief Complaint: I'm feeling little better but I am unable to sleep. Problems Identified/Issues Discussed: Patient seen, chart reviewed, case discussed with the staff. Issues related to illness and treatment were discussed with the patient and staff. Reported compliant with treatment with no adverse effect. Calm and cooperative. Reported feeling little better. Patient still reported feeling sleeping difficulty. We'll increase the dose of trazodone to 100 mg. Patient agreed. Awake, alert and oriented x3. Mood reported as anxious. Affect appropriate. Memory intact. Aftercare discussed with the patient. Denied any delusions, auditory or visual hallucinations, suicidal ideations or homicidal ideations at the time of evaluation. Medical Problems: Asthma Arthritis Diabetes mellitus Bilateral glaucoma Diagnostic Results: Reviewed DSM 5 Symptoms Update: Some improvement with treatment Medication Change: Yes (Dose of trazodone increased to 100 mg.) Medical Record Reviewed: Yes Mental Status Examination - Cognitive Function Orientation: Person, Place, Situation, Time Memory: Intact Attention: WNL Concentration: WNL Association: WN Fund of Knowledge: [facility] Decription of patient's judgement and insights: Fair - Mood Mood: Anxious - Affect Affect: Other (Appropriate) - Speech Speech: Appropriate - Formal Thought Process Formal Thought Process: No Impairment Psychotic Thoughts and Behaviors: None - Suicidal Ideation Suicidal Ideation: No - Homicidal Ideation Homicidal Ideation: No Goal/Treatment Plan - Goal/Treatment Plan Need for Continued Stay: Remain at risks for inpatient hospitalization, Discharge may exacerbated symptoms, Severe functional impairment Progress Toward Problem(s) and Goals/Treatment Plan: Patient education. Supportive therapy. CBT for relapse prevention. [place] for abstinence. Continue treatment as before. Patient wants to go to a program for Vivitral injection for follow-up care after discharge from the hospital. Estimated Date of D/C: 03/13/18 - Smoking Cessation Smoking Cessation Initiated: No
--- NOTE | 2018-03-12 18:43 | PCM.PYCHPN ---
Psychiatric Progress Note - Psychiatric Progress Note Patient seen today, length of contact: 15 minutes Patient Chief Complaint: I am feeling better. Last night I slept good. Problems Identified/Issues Discussed: Patient seen, chart reviewed, case discussed with the staff. Issues related to illness and treatment were discussed with the patient and staff. Reported compliant with treatment with no adverse effect. Calm and cooperative. Reported feeling better. Patient reported slept last night after increasing dose of trazodone and now he is feeling much better. Awake, alert and oriented x3. Mood reported as anxious. Affect appropriate. Memory intact. Aftercare discussed with the patient. Denied any delusions, auditory or visual hallucinations, suicidal ideations or homicidal ideations at the time of evaluation. Medical Problems: Asthma Arthritis Diabetes mellitus Bilateral glaucoma Diagnostic Results: Reviewed DSM 5 Symptoms Update: Improving with treatment. Medication Change: No Medical Record Reviewed: Yes Mental Status Examination - Cognitive Function Orientation: Person, Place, Situation, Time Memory: Intact Attention: WNL Concentration: WNL Association: WNL Fund of Knowledge: [facility] Decription of patient's judgement and insights: Fair - Mood Mood: Anxious (Much less than before) - Affect Affect: Other (Appropriate) - Speech Speech: Appropriate - Formal Thought Process Formal Thought Process: No Impairment Psychotic Thoughts and Behaviors: None - Suicidal Ideation Suicidal Ideation: No - Homicidal Ideation Homicidal Ideation: No Goal/Treatment Plan - Goal/Treatment Plan Need for Continued Stay: Remain at risks for inpatient hospitalization, Discharge may exacerbated symptoms, Severe functional impairment Progress Toward Problem(s) and Goals/Treatment Plan: Patient education. Supportive therapy. CBT for relapse prevention. [place] for abstinence. Continue treatment as before. Patient wants to go to a program for Vivitral injection for follow-up care after discharge from the hospital. Estimated Date of D/C: 03/13/18 - Smoking Cessation Smoking Cessation Initiated: No
[2018-03-13 06:18] VITALS: PULSE 80; TEMP 97.7
[2018-03-13 09:40] VITALS: BP 120/78; O2SAT 97
--- NOTE | 2018-03-13 10:22 | PCM.PYCHDC ---
Mental Status Examination - Mental Status Examination Orientation: Person, Place, Situation, Time Memory: Intact Mood: Neutral Affect: Other (Appropriate) Speech: Appropriate Attention: WNL Concentration: WNL Association: WNL Fund of Knowledge: WNL Formal Thought Process: No Impairment Description of patient's judgement and insight: Fair Psychotic Thoughts and Behaviors: None Suicidal Ideation: No Current Homicidal Ideation?: No Discharge Summary - Discharge Note Reason for Hospitalization: Opioid use disorder severe. Cocaine use disorder severe. Anxiolytic use disorder mild Laboratory Data: Reviewed Consultations:: List each consultation separately and include: 1. Reason for request. 2. Findings. 3. Follow-up Summary of Hospital Course include:: 1. Description of specific treatment plan utilized for patients during their course of treatmen. 2. Summarize the time- course for resolution of acute symptoms and/or regressed behaviors. 3. Describe issues identified and worked on during hospitalization. 4. Describe medication utilized. 5. Describe medical problems identified and treated. 6. 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 Opioid: Started using heroin at 13 years of age, increased gradually up to 1-2 bundles of heroin daily, sniffing. Last use was yesterday one bag. His longest period of abstinence was 15 years until 9 years ago when he relapsed again. Later patient was in methadone maintenance treatment program for 1-1/2 year until 3 months ago when he stopped going to the program and relapsed again. Patient has history of one detox and 2 rehabs in the past in [facility] and [facility]. Cocaine: Patient has history of cocaine use but was guarded about cocaine use. Urine drug screen was also positive for cocaine. Xanax: Started using Xanax 2 weeks ago, was using 1-2 sticks each of 2 mg, 3 times per week. Last used 2 days ago. Patient smokes 5-6 cigarettes daily but is refusing for nicotine patch. Patient has history of right leg surgery during his childhood. Patient has history of frequent requests in the past due to on corroborating, drug charges, shoplifting and [facility]. His last arrest was 10 years ago. Patient was born in [place] and has 12th grade of education. 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 Never and has no children. Lives with his fiance for last 15 years. His height is 5 feet 11 inches and weight is 130 pounds. During his stay in the hospital patient was treated with methadone taper for opioid withdrawal symptoms. Patient was also started on other PRN medications. Patient was attending groups and other activities on the unit. With above treatment patient started feeling better. Today patient was stable and had no withdrawals, ready for discharge. At the time of evaluation and discharge, patient was awake, alert and oriented x3, no delusions, no auditory or visual hallucinations, no suicidal ideations or homicidal ideations. Patient was discharged in a stable condition. - Diagnosis (1) Opioid use disorder, severe, dependence Status: Acute (2) Cocaine use disorder, severe, dependence Status: Acute (3) Sedative, hypnotic or anxiolytic use disorder, mild, abuse Status: Acute - Final Diagnosis (DSM 5) Condition upon Discharge: STABLE Disposition: HOME/ ROUTINE Follow-up Treatment Plan: [facility] and for follow-up care after discharge from the hospital. Prescriptions/Medication Reconciliation: RX: Gabapentin [Neurontin] 400 mg PO TID #90 cap RX: traZODone [Desyrel] 100 mg PO HS #30 tab - Smoking Cessation Smoking Cessation Medication prescribed: No - Antipsychotic Medications Pt discharged on 2 or more routine antipsychotic medications: No
== END 2018-03-13 10:50 | disposition home or self-care (01) | DRG 745 ==
LOC: C.ER 10:11 → C.7D 14:05
PROC: HZ2ZZZZ Detoxification Services for Substance Abuse Treatment (ICD-10-PCS; principal; 2018-03-09)
PROC: HZ81ZZZ Medication Management for Substance Abuse Treatment, Methadone Maintenance (ICD-10-PCS; 2018-03-09)
PROC: HZ46ZZZ Group Counseling for Substance Abuse Treatment, Psychoeducation (ICD-10-PCS; 2018-03-09)
PROC: HZ59ZZZ Individual Psychotherapy for Substance Abuse Treatment, Supportive (ICD-10-PCS; 2018-03-09)
DX: F11.23 Opioid dependence with withdrawal (principal); F14.20 Cocaine dependence, uncomplicated; F13.10 Sedative, hypnotic or anxiolytic abuse, uncomplicated; F17.210 Nicotine dependence, cigarettes, uncomplicated; E11.9 Type 2 diabetes mellitus without complications; J45.909 Unspecified asthma, uncomplicated; M19.011 Primary osteoarthritis, right shoulder; M19.012 Primary osteoarthritis, left shoulder; H40.9 Unspecified glaucoma

== ENCOUNTER 2018-07-26 00:28 | Emergency (ER) | payer MEDICAID ==
[2018-07-26 01:00] VITALS: RESP 18; TEMP 97.6
--- NOTE | 2018-07-26 05:26 | C.PDOC ---
History Of Present Illness 53 year old male requesting detox from heroin. Patient states he sniffs heroin, sniffed multiple times today. Patient was informed that there are no detox beds available at this time, he is requesting to sleep until the morning because his put him out. Denies any trauma or complaints. Time Seen by Provider: 07/26/18 00:50 Chief Complaint (Nursing): Psychiatric Evaluation History Per: Patient History/Exam Limitations: no limitations Onset/Duration Of Symptoms: Hrs Current Symptoms Are (Timing): Still Present Past Medical History Reviewed: Historical Data, Nursing Documentation, Vital Signs Vital Signs: Last Vital Signs Temp 97.6 F 07/26/18 03:47 Pulse 71 07/26/18 03:47 Resp 18 07/26/18 03:47 BP 118/68 07/26/18 03:47 Pulse Ox 95 07/26/18 03:47 Primary Care Provider: Jose Swartz - Medical History PMH: Arthritis, Asthma Denies: Diabetes, Hepatitis, HIV, HTN, Chronic Kidney Disease, Seizures, Sexually Transmitted Disease - [facility] Procedures DETOXIFICATION SERVICES FOR SUBSTANCE ABUSE TREATMENT (03/09/18) GROUP STAFF APPRAISER FOR SUBSTANCE ABUSE TREATMENT, PSYCHOEDUCATION (03/09/18) INDIV PSYCHOTHERAPY FOR SUBSTANCE ABUSE TREATMENT, SUPPORT (03/09/18) MEDS MGMT FOR SUBSTANCE ABUSE TREATMENT, METHADONE MAINT (03/09/18) Family History: States: Unknown Family Hx - Social History Hx Alcohol Use: No Hx Substance Use: Yes - Immunization History Hx Tetanus Toxoid Vaccination: No Hx Influenza Vaccination: No Hx Pneumococcal Vaccination: No Review Of Systems Constitutional: Negative for: Fever, Chills Cardiovascular: Negative for: Chest Pain, Palpitations Respiratory: Negative for: Cough, Shortness of Breath Gastrointestinal: Negative for: Nausea, Vomiting Neurological: Negative for: Weakness, Numbness Physical Exam - Physical Exam Appears: Well, Non-toxic Skin: Normal Color, Warm Head: Atraumatic, Normacephalic Eye(s): bilateral: Normal Inspection Respiratory: No Accessory Muscle Use, Other (Normal inspiratory effort) Extremity: Normal ROM (x4), Other (No sign of trauma) Neurological/Psych: Oriented x3, Normal Speech Gait: Steady ED Course And Treatment O2 Sat by Pulse Oximetry: 95 (room air) Pulse Ox Interpretation: Normal Medical Decision Making Medical Decision Making: Patient last seen ambulating with upright steady gait getting ready to leave the ER. Disposition Counseled Patient/Family Regarding: Diagnosis, Need For Followup - Disposition Referrals: Jose Swartz MD [Primary Care Provider] - Disposition: HOME/ ROUTINE Disposition Time: 05:25 Condition: STABLE Instructions: Drug Abuse and Drug Addiction (DC) Forms: [facility] (Arabic), General Discharge Instructions - Clinical Impression Clinical Impression: Opioid use disorder, severe, dependence - PA / [employer]CH[employer]IC APPRENTICE / Resident Statement MD/DO has reviewed & agrees with the documentation as recorded. - Scribe Statement The provider has reviewed the documentation as recorded by the Scribe Ricky Dyer All medical record entries made by the Mily were at my direction and personally dictated by me. I have reviewed the chart and agree that the record accurately reflects my personal performance of the history, physical exam, medical decision making, and the department course for this patient. I have also personally directed, reviewed, and agree with the discharge instructions and disposition.
[2018-07-26 06:19] VITALS: BP 132/74; PULSE 75
[2018-07-26 06:41] VITALS: O2SAT 95
== END 2018-07-26 05:45 | disposition home or self-care (01) ==
LOC: C.ER 00:28 → SUPCPDRO 00:28 → C.ER 05:45
DX: F11.20 Opioid dependence, uncomplicated (principal)